=== PATIENT | male | born 1975 | race Caucasian/White ===

== ENCOUNTER 2023-12-28 12:23 | Emergency (ER) | payer OTHER ==
[~2023-12-28] VITALS: Ht 190.5 cm; Wt 108.9 kg
[2023-12-28 12:33] VITALS: BP 156/102; PULSE 102; RESP 18; TEMP 98; O2SAT 99
[2023-12-28] MEDS: LIDOCAINE 5% 1 EA PATCH TP ONE (13:12)
[2023-12-28] MEDS: methocarbamoL 500 MG TAB PO STA (13:14)
[2023-12-28] MEDS: IBUPROFEN 600 MG TAB PO ONE (13:15)
[2023-12-28] MEDS ORDERED: LID5T TP (15:12)
[2023-12-28] MEDS ORDERED: methocarbamoL 500 MG TAB ONE ×2 (15:33→15:34)
[2023-12-28] MEDS ORDERED: IBUPROFEN 600 MG TAB ONE (15:33)
[2023-12-28] MEDS ORDERED: IBUP-2213 PO (15:45)
[2023-12-28] MEDS ORDERED: METH-1681 PO (15:45)
== END 2023-12-28 16:19 | disposition home or self-care (01) ==
LOC: MED 12:23
DX: M54.50 Low back pain, unspecified (principal); Z79.1 Long term (current) use of non-steroidal anti-inflammatories (NSAID); Z79.899 Other long term (current) drug therapy; V89.2XXA Person injured in unspecified motor-vehicle accident, traffic, initial encounter; Y93.89 Activity, other specified; Y92.89 Other specified places as the place of occurrence of the external cause; Y99.8 Other external cause status
CPT/HCPCS: 72100; 99284